=== PATIENT | female | born 1975 | race Caucasian/White ===

== ENCOUNTER 2018-01-28 17:28 | Emergency (ER) | payer OTHER ==
[~2018-01-28] VITALS: Ht 160 cm; Wt 60.3 kg
[2018-01-28 17:44] VITALS: BP 119/73
[2018-01-28 18:46] LABS: ABSOLUTE BASOPHIL COUNT 0.1 /CUMM (0.0-0.2); ABSOLUTE EOSINOPHIL COUNT 0.2 /CUMM (0.0-0.7); ABSOLUTE GRANULOCYTE CT 5.6 /CUMM (1.4-6.5); ABSOLUTE LYMPH COUNT 1.9 /CUMM (1.2-3.4); ABSOLUTE MONOCYTE COUNT 0.5 /CUMM (0.10-0.60); BASOPHIL % 0.7 % (0.0-2.0); EOSINOPHIL % 2.5 % (0-5); GRANULOCYTE % 67.6 % (42.2-75.2); HEMATOCRIT 37.9 % (37-47); MEAN CORPUSCULAR HGB CONC 33.3 G/DL (33.0-37.0); MEAN CORPUSCULAR VOLUME 87.1 FL (81.0-99.0); MEAN PLATELET VOLUME 7.9 FL (7.4-10.4); PLATELET COUNT 300 /CUMM (130-400); RBC DISTRIBUTION WIDTH 14.1 % (11.5-14.5); RED BLOOD CELL CT 4.35 /CUMM (4.20-5.40); WHITE BLOOD CELL COUNT 8.3 /CUMM (4.8-10.8)
--- NOTE | 2018-01-28 19:58 | ED CARDIAC/CP/PALPITATIONS ---
History of Present Illness General Chief Complaint: Chest Pain Stated Complaint: [facility];CHEST PAIN RADIATING DOWN LEFT ARM Source: patient, family Exam Limitations: no limitations Vital Signs & Intake/Output Vital Signs & Intake/Output Vital Signs Date Time Temp Pulse Resp B/P B/P Pulse O2 O2 Flow FiO2 Mean Ox Delivery Rate 01/28 1744 96.7 70 15 119/73 96 Room Air Room Air Allergies Coded Allergies: No Known Allergies (01/28/18) Triage Note: PT SENT TO ED FROM URGENT CARE FOR C/C OF INTERMITTENT CHEST PAIN X A COUPLE OF MONTHS, BUT TODAY PAIN RADIATED TO LEFT ARM. DENIES SOB, NAUSEA, JAW PAIN, NUMBNESS OR TINGLING. EKG SINUS RHYTHM. SENT FOR BLOOD WORK. Triage Nurses Notes Reviewed? yes : No Patient currently breastfeeds: No HPI: 42F no PMH with several weeks of a sensation of chest pressure. She has had it on and off, had been non-radiating, moderate, not associated with exertion, non- positional. She denies SOB, dyspnea, palpitations. Today, she felt left arm pain mid-upper arm that did not radiate to neck or fingers, so went to urgent care, and was sent here. She has no personal or family cardiac history, no smoking or drugs, and is able to exert herself without increase in pain. Past History Travel History Traveled to [place] past 21 day No Medical History Any Pertinent Medical History? see below for history Neurological: NONE EENT: NONE Cardiovascular: NONE Respiratory: NONE Gastrointestinal: NONE Hepatic: NONE Renal: NONE Musculoskeletal: NONE Psychiatric: NONE Endocrine: NONE Blood Disorders: NONE Cancer(s): NONE [employer]/Reproductive: NONE Surgical History Surgical History: non-contributory Psychosocial History What is your primary language Swazi Tobacco Use: Never used ETOH Use: denies use Illicit Drug Use: denies illicit drug use Family History Hx Contributory? No Review of Systems Review of Systems Constitutional: Reports: no symptoms. EENTM: Reports: no symptoms. Respiratory: Reports: no symptoms. Cardiovascular: Reports: no symptoms. GI: Reports: no symptoms. Genitourinary: Reports: no symptoms. Musculoskeletal: Reports: no symptoms. Skin: Reports: no symptoms. Neurological/Psychological: Reports: no symptoms. Hematologic/Endocrine: Reports: no symptoms. Immunologic/Allergic: Reports: no symptoms. All Other Systems: Reviewed and Negative Physical Exam Physical Exam General Appearance: well developed/nourished, no apparent distress Head: atraumatic, normal appearance Eyes: Bilateral: normal appearance, PERRL. Ears, Nose, Throat: normal ENT inspection, hearing grossly normal Neck: normal inspection, supple, full range of motion Respiratory: normal breath sounds, chest non-tender, no respiratory distress Cardiovascular: regular rate/rhythm Gastrointestinal: soft, non-tender Back: normal inspection, normal range of motion Extremities: normal inspection, normal range of motion Neurologic/Psych: awake, alert, oriented x 3, normal mood/affect Skin: intact, normal color, warm/dry Core Measures ACS in differential dx? No CVA/TIA Diagnosis No Sepsis Present: No Sepsis Focused Exam Completed? No Progress Differential Diagnosis: AMI, aortic dissection, atrial fibrillation, cholecystitis, CHF/pulm edema, costochondritis, hyperkalemia, hypovolemia, hyperthyroid, hyperventilation, intracranial hemorrhage, musculoskeletal pain, myocarditis, pancreatitis, pericarditis, pneumonia, pneumothorax, PSVT, pulmonary embolism, PUD/GERD, PVCs/PACs, respiratory failure, rib fracture, sepsis, unstable angina, V-fib/V-Tach, WPW syndrome Plan of Care: Orders Procedure Date/time Status TROPONIN LEVEL 01/29 1736 Complete COMPREHENSIVE METABOLIC PANEL 01/28 173 Complete CBC WITHOUT DIFFERENTIAL 01/29 1736 Complete EKG 01/28 1729 Active Laboratory Tests 01/28/18 1743: Anion Gap 11, Estimated GFR > 60, BUN/Creatinine Ratio 13.8, Glucose 79, Calcium 8.9, Total Bilirubin 0.6, AST 14, ALT 17, Alkaline Phosphatase 49, Troponin I < 0.01, Total Protein 6.8, Albumin 4.2, Globulin 2.6, Albumin/Globulin Ratio 1.6, CBC w Diff NO MAN DIFF REQ, RBC 4.35, MCV 87.1, MCH 29.0, MCHC 33.3, RDW 14.1, MPV 7.9, Gran % 67.6, Lymphocytes % 23.2, Monocytes % 6.0, Eosinophils % 2.5, Basophils % 0.7, Absolute Granulocytes 5.6, Absolute Lymphocytes 1.9, Absolute Monocytes 0.5, Absolute Eosinophils 0.2, Absolute Basophils 0.1 Initial ED EKG: normal sinus rhythm, no ST T wave changes Departure Departure Disposition: HOME OR SELF CARE Condition: Stable Clinical Impression Primary Impression: Chest pressure Referrals: Colton CARO,Noel Ruffin (PCP/Family) Additional Instructions: Follow up with your PCP for an outpatient stress test. Return to ER if any new or worsening symptoms, including worsening chest pain, shortness of breath, lightheadedness, sweatiness, or any other symptoms. Departure Forms: Customer Survey General Discharge Information Critical Care Note Critical Care Note Critical Care Time: non-applicable
== END 2018-01-28 20:15 ==
LOC: ERH 17:28
PROVIDERS: Internal Medicine
DX: R07.89 Other chest pain (principal)
CPT/HCPCS: 93005; 93010